=== PATIENT | female | born 1950 | race Caucasian/White ===

== ENCOUNTER 2016-12-10 09:39 | Emergency (ER) | payer OTHER, MEDICAID ==
[~2016-12-10] VITALS: Ht 167.6 cm; Wt 64.0 kg
[2016-12-10] MEDS ORDERED: ACETAMINOPHEN 325MG TABLET PO ONE (10:30)
[2016-12-10 10:39] LABS: HEMATOCRIT. 33.4 % (36.0-48.0); HEMOGLOBIN. 11.4 g/dL (12.0-16.0); MEAN CORPUSCULAR HEMOGLOBIN 32.6 pg (28.0-32.0); MEAN CORPUSCULAR VOLUME 95.8 fL (81.0-99.0); MEAN PLATELET VOLUME 9.6 fl (7.4-10.4); PLATELET 145 x1000/uL (130-400); RED BLOOD CELL COUNT 3.49 mill/uL (4.2-5.4); RED CELL DISTRIBUTION WIDTH 15.3 % (11.6-14.6)
[2016-12-10 10:47] LABS: INR 1.1; PROTHROMBIN TIME 11.7 sec (9.4-11.6)
[2016-12-10 10:51] LABS: CARBON DIOXIDE 27 mEq/L (21-32); CHLORIDE 104 mEq/L (98-107)
[2016-12-10 10:56] LABS: TROPONIN I < 0.02 ng/mL (0.00-0.04)
[2016-12-10 11:31] LABS: PLATELET ESTIMATE NORMAL
[2016-12-10] MEDS ORDERED: TRAMADOL 50MG TABLET PO ONE (12:45)
[2016-12-10] MEDS ORDERED: ONDANSETRON 4MG ODT PO ONE (13:15)
[2016-12-10 13:35] VITALS: BP 110/74
== END 2016-12-10 13:59 | disposition home or self-care (01) ==
LOC: ER 09:53
DX: S20.219A Contusion of unspecified front wall of thorax, initial encounter (principal); M54.2 Cervicalgia; R07.89 Other chest pain; M19.90 Unspecified osteoarthritis, unspecified site; V43.52XA Car driver injured in collision with other type car in traffic accident, initial encounter; Y93.89 Activity, other specified; Y92.411 Interstate highway as the place of occurrence of the external cause
CPT/HCPCS: 36415; 70450; 71010; 72125; 80053; 84484; 85025; 85610; 93005; 99285; Q0162